=== PATIENT | male | born 2000 | race Caucasian/White ===

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

== ENCOUNTER 2022-04-01 14:10 | Emergency (ER) | payer OTHER, SELFPAY ==
[2022-04-01 14:11] VITALS: BP 175/109; PULSE 117; RESP 16; TEMP 36.6; O2SAT 98; BMI 23.2
[2022-04-01 14:33] VITALS: BP 148/94; PULSE 104; RESP 18; O2SAT 98
--- NOTE | 2022-04-01 14:34 | CT_ITS ---
HISTORY: neck pain. TECHNIQUE: Helically acquired images were obtained of the cervical spine without contrast. 2D reformatted images were reviewed. A radiation dose optimization technique was used for this scan. 466 images. COMPARISON: None. FINDINGS: VERTEBRAE: Vertebral body heights maintained. Posterior elements intact. ALIGNMENT: Straightening of the cervical lordosis without significant anterior or posterior subluxation. INTERVERTEBRAL DISCS: Disc heights preserved. SOFT TISSUES: No prevertebral soft tissue swelling. CT/Spine Cervical without Contras IMPRESSION: No evidence of acute cervical spinal fracture or dislocation. Electronically Signed: Clara Martinez MD at 15:01 EST ,
--- NOTE | 2022-04-01 14:34 | CT_ITS ---
HISTORY: head injury. TECHNIQUE: Multiple axial images were obtained of the head without intravenous contrast. A radiation dose optimization technique was used for this scan. 239 images. COMPARISON: None. FINDINGS: BRAIN PARENCHYMA: No significant attenuation abnormality. No acute intra-axial hemorrhage. CSF SPACES: Cerebral ventricles, cortical sulci, and other extra-axial CSF spaces within normal limits in size for patient''s age. No midline shift or other significant mass effect. No acute extra-axial hemorrhage. CALVARIUM: Intact. PARANASAL SINUSES AND MASTOID AIR CELLS: Mild paranasal sinus mucosal thickening. ORBITS: Unremarkable. CT/Brain/Head without Contrast IMPRESSION: No acute intracranial process identified. Electronically Signed: Clara Martinez MD at 15:03 EST ,
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
== END 2022-04-01 15:34 | disposition home or self-care (01) ==
PROVIDERS: Emergency Provider Emergency Medicine; PCP Family Medicine; Visit Provider Emergency Medicine
DX: S09.90XA Unspecified injury of head, initial encounter (principal); M54.2 Cervicalgia; S80.811A Abrasion, right lower leg, initial encounter; S80.812A Abrasion, left lower leg, initial encounter; Y04.8XXA Assault by other bodily force, initial encounter
CPT/HCPCS: 70450; 72125; 99283